=== PATIENT | male | born 1965 | race Caucasian/White ===

== ENCOUNTER 2016-07-08 07:06 | Day surgery (SDC) | payer OTHER ==
[~2016-07-08 07:06] MED LIST: ACTOS45 M1 PO; ASPIRIN81 M1 PO; GLUCOPHAGE500 M3 PO; INVOKANA300 MG PO; MAVIK2 M1 PO; ROSUVASTATIN CA20 MG PO
== END 2016-07-08 10:20 ==
LOC: SRG 07:06 → SHSB 07:11 → ORE 09:08 → SHSB 09:46
PROC: 0JB60ZZ Excision of Chest Subcutaneous Tissue and Fascia, Open Approach (ICD-10-PCS; principal; 2016-07-08)
DX: D17.1 Benign lipomatous neoplasm of skin and subcutaneous tissue of trunk (principal); I25.10 Atherosclerotic heart disease of native coronary artery without angina pectoris; I10 Essential (primary) hypertension; E66.9 Obesity, unspecified; E78.5 Hyperlipidemia, unspecified; E11.40 Type 2 diabetes mellitus with diabetic neuropathy, unspecified; K21.9 Gastro-esophageal reflux disease without esophagitis; F10.10 Alcohol abuse, uncomplicated; N48.6 Induration penis plastica; Z68.33 Body mass index [BMI] 33.0-33.9, adult; Z79.82 Long term (current) use of aspirin; Z79.84 Long term (current) use of oral hypoglycemic drugs; Z79.899 Other long term (current) drug therapy; Z98.890 Other specified postprocedural states
CPT/HCPCS: J0690